=== PATIENT | male | born 1985 | race Caucasian/White ===

== ENCOUNTER 2023-07-27 08:25 | Emergency (ER) | payer OTHER, SELFPAY ==
[2023-07-27 08:29] VITALS: BP 155/111; PULSE 92; RESP 14; TEMP 35.7; O2SAT 99; BMI 32.5
--- NOTE | 2023-07-27 08:51 | CRLHL7_ITS ---
For Patients: As a result of the Cures Act, medical imaging exams and procedure reports are released immediately into your electronic medical record. You may view this report before your referring provider. If you have questions, please contact your health care provider. Indication: INJURY Technique: Right hand 3 views. Comparison: None. Findings: Bones: Alignment is normal. No fractures or bone lesions. Joint spaces: Unremarkable. Soft tissues: Unremarkable. Impression: No evidence of right hand fracture. Dictated by Tadeo Castillo MD @ 07/27/2023 10:50:57 AM (Electronically Signed)
--- NOTE | 2023-07-27 08:52 | ED_ITS ---
HPI - General Adult General Chief complaint: Extremity Pain/Injury, Upper Stated complaint: Hand injury Time Seen by Provider: 07/27/23 08:31 History of Present Illness HPI narrative: 37 year white male punched a grinding wheel injured his right MCP dorsally has a laceration. He is able to move his finger fully his index finger. No other complaints. He thinks he is up-to-date on tetanus but not sure. He denies other health problems or allergies to medications able to move his hand he is not a good deal of pain. Related Data Home Medications Medication Instructions Recorded Confirmed No Known Home Medications 07/27/23 07/27/23 Previous Rx's Medication Instructions Recorded cephalexin 500 mg capsule 500 mg PO QID #20 caps 07/27/23 Allergies Allergy/AdvReac Type Severity Reaction Status Date / Time No Known Drug Allergies Allergy Verified 07/27/23 08:35 Review of Systems Status of ROS: Reports: 6 or more systems reviewed and unremarkable except as noted in History and below PFSH PFS Social History Smoking Status: Never smoker Do you use any of these nicotine containing products: None How often do you have a drink containing alcohol: 2-3 times a week How many standard drinks containing alcohol do you have on a typical day: 1 or 2 How often do you have six or more drinks on one occasion: Less than monthly AUDIT-C Alcohol total score: 4 Non-prescribed substance use: marijuana (any form) Exam Narrative: Exam Narrative: Objective: Patient's vital signs show elevated blood pressure He is alert orient x3 Right hand exam shows a 2 cm laceration over the MCP. I was able to inspect this it looks like a tangential laceration and not a deep to the joint. The patient had this irrigated and cleansed with Betadine. He is able to extend and flex his finger at the MCP joint with good passive and active motion against resistance. Distal CMS intact. Const: Vital Signs, click to edit/add: Vital Signs - 24 hr 07/27/23 08:29 Temperature 96.2 F L Pulse Rate [Pulse Oximeter] 92 Respiratory Rate 14 Blood Pressure [Ri ght Upper Arm] 155/111 H Pulse Oximetry 99 Oxygen Delivery Me thod Room Air Course Vital Signs Vital signs: Initial Vital Signs Temperature 96.2 F L 07/27/23 08:29 Temperature Source Temporal Artery Scan 07/27/23 08:29 Pulse Rate 92 07/27/23 08:29 Respiratory Rate 14 07/27/23 08:29 Blood Pressure 155/111 H 07/27/23 08:29 Blood Pressure Mean 125 H 07/27/23 08:29 Blood Pressure Position Sitting 07/27/23 08:29 Pulse Oximetry 99 07/27/23 08:29 Oxygen Delivery Method Room Air 07/27/23 08:29 Vital Signs Temperature 96.2 F L 07/27/23 08:29 Pulse Rate 92 07/27/23 08:29 Respiratory Rate 14 07/27/23 08:29 Blood Pressure 155/111 H 07/27/23 08:29 Pulse Oximetry 99 07/27/23 08:29 Oxygen Delivery Method Room Air 07/27/23 08:29 Temperature 96.2 F L 07/27/23 08:29 Pulse Rate 92 07/27/23 08:29 Respiratory Rate 14 07/27/23 08:29 Blood Pressure 155/111 H 07/27/23 08:29 Pulse Oximetry 99 07/27/23 08:29 Oxygen Delivery Method Room Air 07/27/23 08:29 Medications Administered Medications: Discontinued Medications Generic Name Dose Route Start Last Admin Trade Name Freq PRN Reason Stop Dose Admin Cephalexin HCl 500 mg 07/27/23 08:51 07/27/23 08:59 Cephalexin 500 Mg Capsule PO 07/27/23 08:52 500 mg ONCE ONE Administration Diphtheria/Tetanus/Acell Pertussis 0.5 ml 07/27/23 09:06 07/27/23 09:13 Tetanus/Diphth/Pertussis 0.5 Ml Syringe IM 07/27/23 09:07 0.5 ml .ONCE ONE Administration Medical Decision Making MDM Narrative Medical decision making narrative: [age] year white male with a right MCP laceration and injury. Will get an x-ray. The wounds been cleaned and covered after repair was done procedure: The repair was a simple interrupted Ethilon sutures 3-0 times for, good skin approximation good hemostasis, normal flexion extension of the MCP joint after repair. Patient will be given updated tetanus if needed and also Keflex 500 orally will continue Keflex 500 q.i.d. x5 days, will review his x-rays returns. Addendum 9:52 a.m. the patient's x-ray looks negative for fracture by my read. We will make an appointment with the patient's see ortho PA and follow-up to check extensor tendon function and finger function although appears intact at this time. Discharge Plan Discharge Clinical Impression: Hand laceration Patient Disposition: Home, Self-Care Condition: Improved Additional Instructions: Recommend ortho recheck, please make the patient an appointment with Ortho PA for repeat evaluation of the finger function with suture removal in 7 days. Light activity for the next 4-5 days, keep covered with a bandage may use bacitracin topically keep dry for 24 hours then may shower or bathe normally. Keflex for 5 days Please call the [facility] at [phone] to schedule a follow up appointment. Activity Level: Light activity Discharge Diet: Regular Prescriptions: New cephalexin 500 mg capsule 500 mg PO QID Qty: 20 0RF No Action No Known Home Medications Stand Alone Forms: [id number] Info Instructions
[2023-07-27] MEDS: cephALEXin 500 MG CAPSULE PO (08:59)
[2023-07-27] MEDS: TETANUS/DIPHTH/PERTUSSIS 0.5 ML SYRINGE IM (09:13)
== END 2023-07-27 10:10 | disposition home or self-care (01) ==
LOC: ED 09:18
PROVIDERS: Emergency Provider Family Medicine
DX: S61.411A Laceration without foreign body of right hand, initial encounter (principal); W29.8XXA Contact with other powered hand tools and household machinery, initial encounter
CPT/HCPCS: 12001; 73130; 90471; 90715; 99283; 99284; A9270